=== PATIENT | female | born 1955 | race African-American/Black ===

== ENCOUNTER 2016-11-09 20:41 | Emergency (ER) | payer MEDICAID ==
[~2016-11-09] VITALS: Ht 162.6 cm; Wt 117.9 kg
[2016-11-09 21:55] LABS: Urine Bilirubin Negative (Negative); Urine Blood Negative /uL (Negative); Urine Color Yellow (Yellow); Urine Glucose Normal (Normal); Urine Hyaline Cast FEW /lpf (0 - 2); Urine Ketone Negative (Negative); Urine Mucus FEW (None Seen); Urine Nitrite Negative (Negative); Urine RBC <1 /hpf (0 - 4); Urine Squamous Epithelial Cell FEW /hpf (<5); Urine Urobilinogen Normal (Negative); Urine pH 5.5 (5.0-8.0)
[2016-11-09 21:55] LABS: Basophils # (auto) 0.1 uL; Basophils % (auto) 0.8 % (0.0-2.0); CONDITION Y; Eosinophils # (auto) 0.1 uL; Eosinophils % (auto) 1.3 % (0.0-7.0); Hematocrit 39.7 % (36.0-46.0); Hemoglobin 13.3 g/dL (12.2-16.2); Lymphocytes # (auto) 2.9 uL; Lymphocytes % (auto) 27.1 % (10.0-50.0); Mean Corpuscular Hgb Conc. 33.5 g/dL (32.0-36.0); Mean Corpuscular Volume 83.6 fL (80.0-100.0); Mean Platelet Volume 9.9 fL (6.9-10.8); Monocytes # (auto) 0.4 uL; Neutrophils # (auto) 7.2 uL; Neutrophils % (auto) 66.8 % (37.0-80.0); Platelet Count (auto) 254 10^3/uL (140-450); Red Cell Distribution Width 17.3 % (11.8-14.3); White Blood Cell 10.8 10^3/uL (4.4-10.8)
[2016-11-09 22:09] LABS: INR 0.95 (0.9-1.15); Partial Thromboplastin Time 28.8 sec (22.64-33.71); Prothrombin Time 10.3 sec (9.37-12.3)
[2016-11-09 22:19] LABS: Albumin 3.4 g/dL (3.4-5.0); Alkaline Phosphatase 123 U/L (45-117); Anion Gap 6 (5-15); Aspartate Aminotransferase 10 U/L (15-37); BUN/Creatinine Ratio 15.4; Bilirubin, Total 0.1 mg/dL (0.2-1.0); Blood Urea Nitrogen 16 mg/dL (7-18); Calcium 8.8 mg/dL (8.5-10.1); Carbon Dioxide 25 mmol/L (21-32); Chloride 104 mmol/L (98-107); GFR African American 70 mL/min; GFR Non-African American 57 mL/min; Glucose 236 mg/dL (74-106); Potassium 3.9 mmol/L (3.5-5.1); Sodium 135 mmol/L (136-145); Total Protein 8.1 g/dL (6.4-8.2)
[2016-11-09 22:22] LABS: B-Type Natriuretic Peptide 10.47 pg/mL (0-100)
[2016-11-09 22:41] LABS: Temperature: 22.7 C (20.0-25.0)
[2016-11-10 03:50] VITALS: BP 155/79
== END 2016-11-10 04:35 | disposition home or self-care (01) ==
LOC: ER 20:52
DX: M54.9 Dorsalgia, unspecified (principal); I10 Essential (primary) hypertension; K21.9 Gastro-esophageal reflux disease without esophagitis; E78.5 Hyperlipidemia, unspecified; G89.4 Chronic pain syndrome; Z90.49 Acquired absence of other specified parts of digestive tract
CPT/HCPCS: 36415; 71010; 80053; 81001; 82962; 83735; 83880; 84484; 85025; 85610; 85730; 93005

== ENCOUNTER 2019-07-13 17:13 | Inpatient (IN) | payer MEDICAID ==
[~2019-07-13] VITALS: Ht 162.6 cm; Wt 99.9 kg
[2019-07-13 17:52] LABS: Basophils # (auto) 0.1 10 ^3/uL (0-0.2); Basophils % (auto) 1.2 % (0.0-2.0); Eosinophils # (auto) 0.1 10 ^3/uL (0-0.8); Eosinophils % (auto) 0.8 % (0.0-7.0); Hematocrit 43.7 % (36.0-46.0); Hemoglobin 14.4 g/dL (12.2-16.2); Lymphocytes % (auto) 34.6 % (10.0-50.0); Mean Corpuscular Hemoglobin 27.6 pg (28.0-32.0); Mean Corpuscular Volume 83.5 fL (80.0-100.0); Monocytes # (auto) 0.5 10 ^3/uL (0-1.3); Monocytes % (auto) 5.5 % (0.0-12.0); Neutrophils % (auto) 57.9 % (37.0-80.0); Nucleated Red Blood Cells % 0.2 %; Platelet Count (auto) 239 10^3/uL (140-450); Red Blood Cells 5.23 10^6/uL (4.0-5.20); Red Cell Distribution Width 16.9 % (11.8-14.3); White Blood Cell 8.7 10^3/uL (4.4-10.8)
[2019-07-13] MEDS ORDERED: cloNIDine HCL 0.1 MG TAB PO ONE (18:00)
[2019-07-13 18:09] LABS: Albumin 3.3 g/dL (3.4-5.0); Anion Gap 4 (5-15); Blood Urea Nitrogen 8 mg/dL (7-18); Calcium 8.9 mg/dL (8.5-10.1); Carbon Dioxide 26 mmol/L (21-32); Chloride 109 mmol/L (98-107); Glucose 92 mg/dL (74-106); Potassium 3.8 mmol/L (3.5-5.1); Sodium 139 mmol/L (136-145)
[2019-07-13 18:11] LABS: Alanine Aminotransferase 23 U/L (13-56); Aspartate Aminotransferase 11 U/L (15-37); BUN/Creatinine Ratio 8.5; GFR African American 77 mL/min; GFR Non-African American 64 mL/min
[2019-07-13 18:16] LABS: Alkaline Phosphatase 134 U/L (45-117); Bilirubin, Total 0.2 mg/dL (0.2-1.0); Total Protein 8.2 g/dL (6.4-8.2)
[2019-07-13 18:55] LABS: INR 0.96 (0.9-1.15)
[2019-07-13] MEDS ORDERED: LISINOPRIL 20 MG TAB PO ONE (19:30)
[2019-07-13] MEDS ORDERED: MORPHINE SULF INJ 2 MG/ML SYRINGE 1ML IV PRN (19:30)
[2019-07-13] MEDS ORDERED: NITROGLYCERIN 0.4 MG SL TAB SL PRN ×2 (19:30→20:15)
[2019-07-13] MEDS ORDERED: NIFEdipine ER 30 MG TAB PO ONE (19:30)
[2019-07-13] MEDS ORDERED: METOPROLOL SUCCINATE XL 50 MG TAB PO ONE (19:30)
[2019-07-13] MEDS ORDERED: ALUM & MAG HYDROX-SIMETH LIQ(MAALOX) 30 ML PO ONE (20:15)
[2019-07-13] MEDS ORDERED: MORPHINE SULFATE 4 MG/ML SYR/VIAL IV PRN (20:15)
[2019-07-13] MEDS ORDERED: IPRATROPIUM BROM 0.5 MG/2.5ML INH SOL NEB ONE (20:15)
[2019-07-13] MEDS ORDERED: ALBUTEROL SULF 2.5 MG/0.5ML(0.5%) NEB SOLN NEB PRN (20:15)
[2019-07-13] MEDS ORDERED: FAMOTIDINE 20 MG TAB PO ONE (20:15)
[2019-07-13] MEDS ORDERED: IPRATROPIUM BROM 0.5 MG/2.5ML INH SOL NEB PRN (20:15)
[2019-07-13] MEDS ORDERED: ALBUTEROL SULF 2.5 MG/0.5ML(0.5%) NEB SOLN NEB ONE (20:15)
[2019-07-13] MEDS ORDERED: DEXTROSE (50%) 50ML SYRG IV PRN (20:15)
[2019-07-13] MEDS: ACETAMINOPHEN 500 MG TAB PO PRN (20:23)
[2019-07-13 20:55] VITALS: BP 171/89
[2019-07-13 22:00] VITALS: BP 171/78
[2019-07-13] MEDS: FAMOTIDINE 20 MG TAB PO SCH (22:00)
[2019-07-13] MEDS ORDERED: METOPROLOL TARTRATE 50 MG TAB PO SCH (22:00)
[2019-07-13] MEDS ORDERED: INSULIN LANTUS (GLARGINE) 1 /0.01ml (100units/ml) SC SCH (22:00)
[2019-07-13 22:02] VITALS: BP 171/78
[2019-07-13] MEDS: GABAPENTIN 300 MG CAP PO SCH (23:08)
[2019-07-13] MEDS: ATORVASTATIN 20 MG TAB PO SCH (23:09)
[2019-07-13] MEDS: LORazepam 0.5 MG TAB PO PRN (23:12)
[2019-07-13 23:15] VITALS: BP 144/79
[2019-07-14] VITALS (7 sets, daily range): BP systolic 118–153; BP diastolic 57–81
[2019-07-14] MEDS: InsuLIN REG 1unit/0.01ml Soln (100units/ml) SC SCH ×5 (00:04→21:33)
[2019-07-14] MEDS: ACCU-CHEK COMFORT CURVE STRIP VI SCH ×5 (00:05→21:33)
[2019-07-14] MEDS: ACETAMINOPHEN 500 MG TAB PO PRN ×2 (03:53→12:32)
[2019-07-14] MEDS: GABAPENTIN 300 MG CAP PO SCH ×3 (06:25→21:14)
[2019-07-14] MEDS: LORazepam 0.5 MG TAB PO PRN ×2 (06:33→21:31)
[2019-07-14] MEDS: INSULIN LISPRO (HUMAN) 100 UNITS/ML ML SC SCH ×3 (09:49→20:20)
[2019-07-14] MEDS: FAMOTIDINE 20 MG TAB PO SCH ×2 (09:50→21:14)
[2019-07-14] MEDS: ENOXAPARIN SOD 40 MG/0.4 ML SYRINGE SC SCH (09:50)
[2019-07-14] MEDS: ASPirin 81 mg TAB PO SCH (09:50)
[2019-07-14] MEDS: DOCUSATE SOD 100 MG CAP PO SCH (09:50)
[2019-07-14] MEDS: LISINOPRIL 20 MG TAB PO SCH (09:51)
[2019-07-14] MEDS: CLOPIDOGREL BISULFATE 75 MG TAB PO SCH (09:51)
[2019-07-14] MEDS: METOPROLOL SUCCINATE XL 50 MG TAB PO SCH (09:52)
[2019-07-14] MEDS ORDERED: ADENOSINE 85 MG in GIVE UN-DILUTED 0 ML IV STA (11:34)
[2019-07-14] MEDS: ONDANSETRON HCL 4 MG/2 ML VIAL IV PRN (14:21)
[2019-07-14] MEDS ORDERED: SERT-275 PO (17:11)
[2019-07-14] MEDS ORDERED: METH500T22 PO (17:11)
[2019-07-14] MEDS ORDERED: HYDR-531 PO (17:11)
[2019-07-14] MEDS ORDERED: BUPR150T6 PO (17:11)
[2019-07-14] MEDS ORDERED: KETO2SHA EX (17:22)
[2019-07-14] MEDS ORDERED: ALBUAER3 IN (17:22)
[2019-07-14] MEDS ORDERED: TRI05TP TOP (17:22)
[2019-07-14] MEDS ORDERED: KETO2CRE4 TOP (17:22)
[2019-07-14] MEDS ORDERED: INSU1INJ19 SC (17:22)
[2019-07-14] MEDS ORDERED: LIRA18IN2 SUBCUT (17:22)
[2019-07-14] MEDS ORDERED: INSUINJ7 IJ (17:23)
[2019-07-14] MEDS ORDERED: OMEP-263 PO (17:24)
[2019-07-14] MEDS ORDERED: CLON0.2T PO (17:26)
[2019-07-14] MEDS ORDERED: FLUT44AE IN (17:26)
[2019-07-14] MEDS ORDERED: GABA-339 PO (17:27)
[2019-07-14] MEDS ORDERED: ZOLP10TA6 PO (17:27)
[2019-07-14] MEDS ORDERED: ARTIOIN11 OP (17:28)
[2019-07-14] MEDS: ATORVASTATIN 20 MG TAB PO SCH (21:13)
[2019-07-14] MEDS: INSULIN LANTUS (GLARGINE) 1 /0.01ml (100units/ml) SC SCH (21:32)
[2019-07-14] MEDS: HYDROcodone-ACET 5/325MG TAB PO PRN (21:42)
[2019-07-15] VITALS (7 sets, daily range): BP systolic 144–170; BP diastolic 70–84
[2019-07-15] MEDS: hydrALAZINE HCL 20 MG/ML VL IV PRN ×2 (01:01→12:27)
[2019-07-15] MEDS: ACETAMINOPHEN 500 MG TAB PO PRN ×4 (01:01→22:26)
[2019-07-15] MEDS: HYDROcodone-ACET 5/325MG TAB PO PRN (05:30)
[2019-07-15] MEDS: GABAPENTIN 300 MG CAP PO SCH (05:30)
[2019-07-15] MEDS: InsuLIN REG 1unit/0.01ml Soln (100units/ml) SC SCH ×4 (06:20→22:25)
[2019-07-15] MEDS: ACCU-CHEK COMFORT CURVE STRIP VI SCH ×4 (06:21→22:24)
[2019-07-15 06:23] LABS: Basophils # (auto) 0.1 10 ^3/uL (0-0.2); Eosinophils # (auto) 0.1 10 ^3/uL (0-0.8); Eosinophils % (auto) 0.8 % (0.0-7.0); Hematocrit 41.8 % (36.0-46.0); Hemoglobin 13.9 g/dL (12.2-16.2); Lymphocytes # (auto) 3.5 10 ^3/uL (0.4-5.4); Lymphocytes % (auto) 36.1 % (10.0-50.0); Mean Corpuscular Hemoglobin 28.1 pg (28.0-32.0); Mean Corpuscular Hgb Conc. 33.4 g/dL (32.0-36.0); Mean Corpuscular Volume 84.2 fL (80.0-100.0); Monocytes # (auto) 0.6 10 ^3/uL (0-1.3); Monocytes % (auto) 5.9 % (0.0-12.0); Neutrophils # (auto) 5.5 10 ^3/uL (1.6-8.6); Neutrophils % (auto) 56.2 % (37.0-80.0); Platelet Count (auto) 225 10^3/uL (140-450); Red Blood Cells 4.96 10^6/uL (4.0-5.20); Red Cell Distribution Width 16.5 % (11.8-14.3); White Blood Cell 9.8 10^3/uL (4.4-10.8)
[2019-07-15 06:38] LABS: Calcium 8.6 mg/dL (8.5-10.1)
[2019-07-15 06:40] LABS: BUN/Creatinine Ratio 12.9
[2019-07-15 06:43] LABS: Bilirubin, Total 0.2 mg/dL (0.2-1.0); Total Protein 7.6 g/dL (6.4-8.2)
[2019-07-15] MEDS ORDERED: HYDROmorphone HCL 2 MG/ML VL IV PRN (09:00)
[2019-07-15] MEDS: DOCUSATE SOD 100 MG CAP PO SCH (09:28)
[2019-07-15] MEDS: METOPROLOL SUCCINATE XL 50 MG TAB PO SCH (09:28)
[2019-07-15] MEDS: ASPirin 81 mg TAB PO SCH (09:29)
[2019-07-15] MEDS: LISINOPRIL 20 MG TAB PO SCH (09:29)
[2019-07-15] MEDS: ENOXAPARIN SOD 40 MG/0.4 ML SYRINGE SC SCH (09:29)
[2019-07-15] MEDS: CLOPIDOGREL BISULFATE 75 MG TAB PO SCH (09:29)
[2019-07-15] MEDS: FAMOTIDINE 20 MG TAB PO SCH ×2 (09:29→22:23)
[2019-07-15] MEDS: ONDANSETRON HCL 4 MG/2 ML VIAL IV PRN ×2 (09:30→15:03)
[2019-07-15] MEDS: INSULIN LISPRO (HUMAN) 100 UNITS/ML ML SC SCH ×3 (10:07→19:39)
[2019-07-15] MEDS: CEPHALEXIN 250 MG CAP PO SCH ×2 (12:27→18:03)
[2019-07-15] MEDS: GABAPENTIN 400 MG CAP PO SCH ×2 (15:03→22:23)
[2019-07-15] MEDS: ATORVASTATIN 20 MG TAB PO SCH (22:23)
[2019-07-15] MEDS: INSULIN LANTUS (GLARGINE) 1 /0.01ml (100units/ml) SC SCH (22:25)
[2019-07-15] MEDS: ZOLPIDEM TARTRATE 5 MG TAB PO PRN (22:26)
[2019-07-16] VITALS (7 sets, daily range): BP systolic 136–178; BP diastolic 67–84
[2019-07-16] MEDS: CEPHALEXIN 250 MG CAP PO SCH ×5 (01:00→23:58)
[2019-07-16 06:10] LABS: Potassium 4.2 mmol/L (3.5-5.1)
[2019-07-16] MEDS: GABAPENTIN 400 MG CAP PO SCH ×3 (06:13→21:51)
[2019-07-16] MEDS: InsuLIN REG 1unit/0.01ml Soln (100units/ml) SC SCH ×4 (06:14→21:56)
[2019-07-16] MEDS: ACCU-CHEK COMFORT CURVE STRIP VI SCH ×4 (06:14→21:51)
[2019-07-16 06:18] LABS: BUN/Creatinine Ratio 16.5; Calcium 9.2 mg/dL (8.5-10.1)
[2019-07-16] MEDS: ONDANSETRON HCL 4 MG/2 ML VIAL IV PRN ×2 (08:38→14:16)
[2019-07-16] MEDS: ENOXAPARIN SOD 40 MG/0.4 ML SYRINGE SC SCH (09:09)
[2019-07-16] MEDS: FAMOTIDINE 20 MG TAB PO SCH ×2 (09:09→21:51)
[2019-07-16] MEDS: DOCUSATE SOD 100 MG CAP PO SCH (09:09)
[2019-07-16] MEDS: ASPirin 81 mg TAB PO SCH (09:10)
[2019-07-16] MEDS: CLOPIDOGREL BISULFATE 75 MG TAB PO SCH (09:10)
[2019-07-16] MEDS: amLODIPine BESYLATE 5 MG TAB PO SCH (09:11)
[2019-07-16] MEDS: INSULIN LISPRO (HUMAN) 100 UNITS/ML ML SC SCH ×3 (09:21→19:30)
[2019-07-16] MEDS: METOPROLOL TARTRATE 25 MG TAB PO SCH ×2 (11:47→21:51)
[2019-07-16] MEDS ORDERED: LISINOPRIL 10 MG TAB PO ONE (13:30)
[2019-07-16] MEDS: MECLIZINE HCL 25 MG TAB PO PRN (14:06)
[2019-07-16] MEDS: ACETAMINOPHEN 500 MG TAB PO PRN (19:28)
[2019-07-16] MEDS ORDERED: ALUM & MAG HYDROX-SIMETH LIQ(MAALOX) 30 ML ONE (20:34)
[2019-07-16] MEDS: ATORVASTATIN 20 MG TAB PO SCH (21:50)
[2019-07-16] MEDS: INSULIN LANTUS (GLARGINE) 1 /0.01ml (100units/ml) SC SCH (21:56)
[2019-07-16] MEDS: ZOLPIDEM TARTRATE 5 MG TAB PO PRN (21:56)
[2019-07-16] MEDS: LORazepam 0.5 MG TAB PO PRN (22:57)
[2019-07-17 05:00] VITALS: BP 145/65
[2019-07-17] MEDS: CEPHALEXIN 250 MG CAP PO SCH ×4 (06:25→23:20)
[2019-07-17] MEDS: GABAPENTIN 400 MG CAP PO SCH ×3 (06:25→22:17)
[2019-07-17] MEDS: ACCU-CHEK COMFORT CURVE STRIP VI SCH ×4 (06:26→22:23)
[2019-07-17] MEDS: InsuLIN REG 1unit/0.01ml Soln (100units/ml) SC SCH ×4 (06:29→22:22)
[2019-07-17] MEDS: ACETAMINOPHEN 500 MG TAB PO PRN ×2 (06:30→22:19)
[2019-07-17 08:00] VITALS: BP 162/79
[2019-07-17 08:55] VITALS: BP 161/85
[2019-07-17] MEDS: DOCUSATE SOD 100 MG CAP PO SCH (09:04)
[2019-07-17] MEDS: FAMOTIDINE 20 MG TAB PO SCH ×2 (09:05→22:17)
[2019-07-17] MEDS: CLOPIDOGREL BISULFATE 75 MG TAB PO SCH (09:05)
[2019-07-17] MEDS: ENOXAPARIN SOD 40 MG/0.4 ML SYRINGE SC SCH (09:05)
[2019-07-17] MEDS: ASPirin 81 mg TAB PO SCH (09:05)
[2019-07-17] MEDS: amLODIPine BESYLATE 5 MG TAB PO SCH (09:06)
[2019-07-17] MEDS: METOPROLOL TARTRATE 25 MG TAB PO SCH ×2 (09:06→22:19)
[2019-07-17] MEDS: LISINOPRIL 10 MG TAB PO SCH (09:07)
[2019-07-17] MEDS: INSULIN LISPRO (HUMAN) 100 UNITS/ML ML SC SCH ×3 (10:00→19:53)
[2019-07-17] MEDS: MECLIZINE HCL 25 MG TAB PO PRN ×2 (11:51→19:55)
[2019-07-17 12:28] VITALS: BP 158/71
[2019-07-17] MEDS: ONDANSETRON HCL 4 MG/2 ML VIAL IV PRN (14:48)
[2019-07-17 16:35] VITALS: BP 154/77
[2019-07-17] MEDS: ATORVASTATIN 20 MG TAB PO SCH (22:17)
[2019-07-17] MEDS: INSULIN LANTUS (GLARGINE) 1 /0.01ml (100units/ml) SC SCH (22:22)
[2019-07-17] MEDS: ZOLPIDEM TARTRATE 5 MG TAB PO PRN (22:23)
[2019-07-17 22:56] VITALS: BP 144/74
[2019-07-18 05:47] VITALS: BP 133/92
[2019-07-18] MEDS: InsuLIN REG 1unit/0.01ml Soln (100units/ml) SC SCH ×2 (06:42→11:30)
[2019-07-18] MEDS: ACCU-CHEK COMFORT CURVE STRIP VI SCH ×2 (06:44→11:30)
[2019-07-18] MEDS: CEPHALEXIN 250 MG CAP PO SCH ×2 (06:44→12:00)
[2019-07-18] MEDS: GABAPENTIN 400 MG CAP PO SCH ×2 (06:44→14:00)
[2019-07-18 08:00] VITALS: BP 141/74
[2019-07-18 08:47] VITALS: BP 141/74
[2019-07-18] MEDS: MECLIZINE HCL 25 MG TAB PO PRN (09:08)
[2019-07-18] MEDS: ACETAMINOPHEN 500 MG TAB PO PRN (09:09)
[2019-07-18] MEDS: DOCUSATE SOD 100 MG CAP PO SCH (09:42)
[2019-07-18] MEDS: ASPirin 81 mg TAB PO SCH (09:42)
[2019-07-18] MEDS: FAMOTIDINE 20 MG TAB PO SCH (09:43)
[2019-07-18] MEDS: CLOPIDOGREL BISULFATE 75 MG TAB PO SCH (09:43)
[2019-07-18] MEDS: METOPROLOL TARTRATE 25 MG TAB PO SCH (09:43)
[2019-07-18] MEDS: amLODIPine BESYLATE 5 MG TAB PO SCH (09:43)
[2019-07-18] MEDS: ENOXAPARIN SOD 40 MG/0.4 ML SYRINGE SC SCH (09:44)
[2019-07-18] MEDS: LISINOPRIL 10 MG TAB PO SCH (09:44)
[2019-07-18] MEDS: INSULIN LISPRO (HUMAN) 100 UNITS/ML ML SC SCH (09:45)
[2019-07-18 13:00] VITALS: BP 155/77
[2019-07-18 13:18] VITALS: BP 141/74
== END 2019-07-18 14:45 | disposition home or self-care (01) | DRG 199 ==
LOC: EDBD 17:13 → ER 17:13 → TELE 17:14 → TELE-CENTR 21:20
PROVIDERS: ADMIT Hospitalist; ATTEND Internal Medicine
DX: I16.9 Hypertensive crisis, unspecified (principal); E11.42 Type 2 diabetes mellitus with diabetic polyneuropathy; E44.0 Moderate protein-calorie malnutrition; E11.65 Type 2 diabetes mellitus with hyperglycemia; I10 Essential (primary) hypertension; K21.9 Gastro-esophageal reflux disease without esophagitis; G89.29 Other chronic pain; Z68.37 Body mass index [BMI] 37.0-37.9, adult; F17.210 Nicotine dependence, cigarettes, uncomplicated; J44.9 Chronic obstructive pulmonary disease, unspecified; Z79.4 Long term (current) use of insulin; Z79.899 Other long term (current) drug therapy; Z80.0 Family history of malignant neoplasm of digestive organs; Z82.49 Family history of ischemic heart disease and other diseases of the circulatory system; Z83.3 Family history of diabetes mellitus; Z91.19 Patient's noncompliance with other medical treatment and regimen; M54.9 Dorsalgia, unspecified; E66.01 Morbid (severe) obesity due to excess calories
CPT/HCPCS: 36415; 70450; 70486; 71045; 78452; 80048; 80053; 82550; 82962; 83735; 84443; 84484; 85025; 85610; 85730; 93005; 93017; 93306; 93886; 94640; G0378; J0153; J1815; J2405

== ENCOUNTER 2020-10-07 08:34 | Emergency (ER) | payer MEDICAID ==
[~2020-10-07] VITALS: Ht 162.6 cm; Wt 98.0 kg
[~2020-10-07 08:34] MED LIST: ALBUAER3 IN; ARTIOIN11 OP; BUPR150T18 PO; CLON0.2T PO; FLUT44AE IN; GABA-339 PO; HYDR-531 PO; INSU1INJ19 SC; INSUINJ7 IJ; KETO2CRE4 TOP; KETO2SHA5 EX; LIRA18IN2 SUBCUT; METH500T22 PO; OMEP-263 PO; SERT25TA14 PO; TRI05TP TOP; ZOLP10TA6 PO
[2020-10-07 10:24] VITALS: BP 196/97
[2020-10-07] MEDS ORDERED: methylPREDNISolone SOD SUCC 125 MG/2 ML VL IM ONE (12:00)
== END 2020-10-07 12:21 | disposition home or self-care (01) ==
LOC: ER 08:34
DX: J01.10 Acute frontal sinusitis, unspecified (principal); G43.909 Migraine, unspecified, not intractable, without status migrainosus; E11.9 Type 2 diabetes mellitus without complications; I10 Essential (primary) hypertension; J44.9 Chronic obstructive pulmonary disease, unspecified; K21.9 Gastro-esophageal reflux disease without esophagitis; E78.5 Hyperlipidemia, unspecified; F17.210 Nicotine dependence, cigarettes, uncomplicated; Z90.89 Acquired absence of other organs; Z90.49 Acquired absence of other specified parts of digestive tract
CPT/HCPCS: 70450; 96372; 99284; J2930

== ENCOUNTER 2020-10-08 18:10 | Emergency (ER) | payer MEDICAID ==
[~2020-10-08] VITALS: Ht 162.6 cm; Wt 98.0 kg
[2020-10-08 18:10] VITALS: BP 149/69
[2020-10-08] MEDS ORDERED: KETOROLAC TROMETH 30 MG/ML 1ML VIAL IV ONE (19:30)
[2020-10-08] MEDS ORDERED: ACETAMINOPHEN 325 MG TAB PO ONE (19:30)
[2020-10-08] MEDS ORDERED: METOCLOPRAMIDE HCL 5MG/ml INJ 2ml VIAL IV ONE (19:30)
[2020-10-08] MEDS ORDERED: SODIUM CHLORIDE 0.9% 1,000 ML IV ONE (19:30)
[2020-10-08 22:14] LABS: Basophils # (auto) 0.1 10 ^3/uL (0-0.2); Basophils % (auto) 0.4 % (0.0-2.0); Eosinophils # (auto) 0 10 ^3/uL (0-0.8); Eosinophils % (auto) 0.3 % (0.0-7.0); Hematocrit 42.6 % (36.0-46.0); Hemoglobin 14.2 g/dL (12.2-16.2); Lymphocytes # (auto) 4.2 10 ^3/uL (0.4-5.4); Lymphocytes % (auto) 29.9 % (10.0-50.0); Mean Corpuscular Hgb Conc. 33.3 g/dL (32.0-36.0); Mean Corpuscular Volume 84.2 fL (80.0-100.0); Monocytes # (auto) 0.9 10 ^3/uL (0-1.3); Monocytes % (auto) 6.4 % (0.0-12.0); Neutrophils # (auto) 8.9 10 ^3/uL (1.6-8.6); Nucleated Red Blood Cells % 0.1 %; Red Blood Cells 5.06 10^6/uL (4.0-5.20); Red Cell Distribution Width 16.2 % (11.8-14.3); White Blood Cell 14.1 10^3/uL (4.4-10.8)
[2020-10-08 22:33] LABS: BUN/Creatinine Ratio 17.1; Calcium 9.4 mg/dL (8.5-10.1); Magnesium 2.2 mg/dL (1.6-2.6); Potassium 3.7 mmol/L (3.5-5.1)
[2020-10-08] MEDS ORDERED: HYDROcodone-ACET 5/325MG TAB PO ONE (23:15)
[2020-10-09 03:15] LABS: Urine Bacteria NONE SEEN /hpf (None Seen); Urine Blood Negative /uL (Negative); Urine Specific Gravity 1.022 (1.001-1.035); Urine WBC 1 /hpf (0 - 5)
== END 2020-10-09 02:31 | disposition home or self-care (01) ==
LOC: ER 18:12
DX: E11.65 Type 2 diabetes mellitus with hyperglycemia (principal); E11.40 Type 2 diabetes mellitus with diabetic neuropathy, unspecified; J44.9 Chronic obstructive pulmonary disease, unspecified; E11.9 Type 2 diabetes mellitus without complications; E78.5 Hyperlipidemia, unspecified; K21.9 Gastro-esophageal reflux disease without esophagitis; I10 Essential (primary) hypertension; F17.210 Nicotine dependence, cigarettes, uncomplicated; Z90.49 Acquired absence of other specified parts of digestive tract
CPT/HCPCS: 36415; 71046; 80048; 81001; 82010; 82962; 83735; 85025; 93005; 96361; 96374; 96375; 99285; J1885; J2765; J7030

== ENCOUNTER 2021-01-15 06:08 | Emergency (ER) | payer MEDICAID ==
[~2021-01-15] VITALS: Ht 162.6 cm; Wt 93.9 kg
[2021-01-15] MEDS ORDERED: LORazepam 0.5 MG TAB PO ONE (07:30)
[2021-01-15 08:19] LABS: Basophils # (auto) 0.1 10 ^3/uL (0-0.2); Basophils % (auto) 0.9 % (0.0-2.0); Eosinophils # (auto) 0 10 ^3/uL (0-0.8); Eosinophils % (auto) 0.3 % (0.0-7.0); Hematocrit 44.2 % (36.0-46.0); Hemoglobin 14.3 g/dL (12.2-16.2); Lymphocytes # (auto) 2.2 10 ^3/uL (0.4-5.4); Mean Corpuscular Hemoglobin 28.1 pg (28.0-32.0); Mean Corpuscular Hgb Conc. 32.4 g/dL (32.0-36.0); Mean Corpuscular Volume 86.8 fL (80.0-100.0); Monocytes # (auto) 0.9 10 ^3/uL (0-1.3); Monocytes % (auto) 5.7 % (0.0-12.0); Neutrophils # (auto) 11.6 10 ^3/uL (1.6-8.6); Neutrophils % (auto) 78.1 % (37.0-80.0); Nucleated Red Blood Cells % 0.1 %; Red Blood Cells 5.09 10^6/uL (4.0-5.20); Red Cell Distribution Width 15.9 % (11.8-14.3); White Blood Cell 14.8 10^3/uL (4.4-10.8)
[2021-01-15] MEDS ORDERED: SODIUM CHLORIDE 0.9% 1,000 ML IV ONE (08:30)
[2021-01-15 08:35] LABS: Albumin 3.5 g/dL (3.4-5.0); Calcium 9.4 mg/dL (8.5-10.1); Potassium 3.9 mmol/L (3.5-5.1)
[2021-01-15 08:38] LABS: BUN/Creatinine Ratio 10.7; Bilirubin, Total 0.3 mg/dL (0.2-1.0); Total Protein 7.6 g/dL (6.4-8.2)
[2021-01-15 11:03] LABS: Urine Bacteria FEW /hpf (None Seen); Urine Blood Negative /uL (Negative); Urine Hyaline Cast FEW /lpf (0 - 2); Urine Mucus FEW (None Seen); Urine Specific Gravity 1.022 (1.001-1.035); Urine WBC 24 /hpf (0 - 5)
[2021-01-15 11:45] VITALS: BP 149/59
== END 2021-01-15 11:58 | disposition home or self-care (01) ==
LOC: ER 06:08
DX: E11.65 Type 2 diabetes mellitus with hyperglycemia (principal); M62.838 Other muscle spasm; J44.9 Chronic obstructive pulmonary disease, unspecified; R51.9 Headache, unspecified; K21.9 Gastro-esophageal reflux disease without esophagitis; E78.5 Hyperlipidemia, unspecified; I10 Essential (primary) hypertension; F17.210 Nicotine dependence, cigarettes, uncomplicated; Z90.49 Acquired absence of other specified parts of digestive tract; Z79.4 Long term (current) use of insulin; Z79.899 Other long term (current) drug therapy
CPT/HCPCS: 36415; 70450; 80053; 81001; 84484; 85025; 96360; 99284; J7030

== ENCOUNTER 2022-09-17 04:31 | Inpatient (IN) | payer OTHER, MEDICAID ==
[~2022-09-17] VITALS: Ht 170.2 cm; Wt 86.3 kg
[2022-09-17] VITALS (47 sets, daily range): BP systolic 81–155; BP diastolic 44–79; PULSE 61–76; RESP 8–22; TEMP 97.3–99.1; O2SAT 95–100
[~2022-09-17 04:31] MED LIST changes: +METH-1181 PO; -METH500T22 PO; -OMEP-263 PO; +OMEP-448 PO; -SERT25TA14 PO; +SERT25TA28 PO
[2022-09-17 04:51] LABS: Basophils # (auto) 0.1 10 ^3/uL (0-0.2); Eosinophils # (auto) 0.1 10 ^3/uL (0-0.8); Hematocrit 38.2 % (36.0-46.0); Hemoglobin 12.6 g/dL (12.2-16.2); Lymphocytes # (auto) 3.2 10 ^3/uL (0.4-5.4); Lymphocytes % (auto) 30.7 % (10.0-50.0); Mean Corpuscular Hemoglobin 28.4 pg (28.0-32.0); Mean Corpuscular Volume 85.9 fL (80.0-100.0); Monocytes # (auto) 0.5 10 ^3/uL (0-1.3); Neutrophils # (auto) 6.6 10 ^3/uL (1.6-8.6); Neutrophils % (auto) 62.3 % (37.0-80.0); Nucleated Red Blood Cells % 0.1 %; Red Blood Cells 4.44 10^6/uL (4.0-5.20); Red Cell Distribution Width 15.3 % (11.8-14.3); White Blood Cell 10.6 10^3/uL (4.4-10.8)
[2022-09-17] MEDS ORDERED: VERAPAMIL 2.5MG/ML INJ 2ML VIAL IV ONE (05:08)
[2022-09-17] MEDS ORDERED: HEPARIN SODIUM (PORCINE) 5000 UNITS/ML 1ML VIAL ONE ×2 (05:08→06:07)
[2022-09-17] MEDS ORDERED: ANGIOMAX 250 MG VIAL IV ONE (05:08)
[2022-09-17] MEDS ORDERED: fentaNYL CITRATE 100 MCG/2 ML VL ONE (05:08)
[2022-09-17] MEDS ORDERED: SODIUM CHL 0.9% 50 ML ONE (05:09)
[2022-09-17] MEDS ORDERED: EPINEPHrine HCL 1 MG/10 ML SYRG ONE (05:09)
[2022-09-17] MEDS ORDERED: ATROPINE SULF 1 MG/10ml SYR ONE (05:09)
[2022-09-17] MEDS ORDERED: IODIXANOL 320MG/ML 100ML BTL IV ONE (05:09)
[2022-09-17] MEDS ORDERED: LIDOCAINE 2%HCL (LOCAL ANESTH.) INJ 20ML MDV ONE (05:09)
[2022-09-17] MEDS ORDERED: MIDAZOLAM HCL 2MG/2ML 2ml VIAL (1mg/ml) ONE (05:09)
[2022-09-17 05:10] LABS: BUN/Creatinine Ratio 13.1 (10.0-20.0); Calcium 8.7 mg/dL (8.5-10.1); Magnesium 2.2 mg/dL (1.6-2.6); Potassium 4.1 mmol/L (3.5-5.1)
[2022-09-17 05:12] LABS: Bilirubin, Total 0.1 mg/dL (0.2-1.0)
[2022-09-17 06:04] LABS: Partial Thromboplastin Time 37.8 SEC (24.5-34.5)
[2022-09-17] MEDS ORDERED: MORPHINE SULFATE INJ 2 MG/ml SYRG ONE (06:07)
[2022-09-17] MEDS ORDERED: FAMOTIDINE (10MG/ML) 2ML VL IV ONE ×2 (06:08→06:15)
[2022-09-17] MEDS ORDERED: NITROGLYCERIN 0.4MG/DOSE SPRAY 4.9GM ONE (06:09)
[2022-09-17] MEDS ORDERED: NITROGLYCERIN 0.4 MG SL TAB SL PRN (06:15)
[2022-09-17] MEDS ORDERED: HEPARIN SODIUM (PORCINE) 5000 UNITS/ML 1ML VIAL IV ONE (06:15)
[2022-09-17] MEDS ORDERED: MORPHINE SULFATE INJ 2 MG/ml SYRG IV PRN (06:15)
[2022-09-17] MEDS ORDERED: NITROGLYCERIN 50MG/250ML 250 ML IV ONE ×2 (06:15→09:26)
[2022-09-17] MEDS ORDERED: MORPHINE SULFATE INJ 2 MG/ml SYRG IV ONE (06:15)
[2022-09-17] MEDS ORDERED: NITROGLYCERIN 0.4 MG SL TAB SL ONE (06:15)
[2022-09-17] MEDS ORDERED: DEXTROSE (50%) 50ML SYRG IV PRN (07:45)
[2022-09-17] MEDS ORDERED: ACCU-CHEK COMFORT CURVE STRIP VI ONE (08:00)
[2022-09-17] MEDS: InsuLIN REG 1unit/0.01ml Soln (100units/ml) SC SCH ×3 (08:07→17:14)
[2022-09-17] MEDS ORDERED: HEPARIN DRIP/D5W 100UNITS/ML 250 ML IV SCH (09:30)
[2022-09-17] MEDS ORDERED: HEPARIN DRIP/D5W 100UNITS/ML 250 ML IV ONE (09:58)
[2022-09-17 10:25] LABS: Basophils # (auto) 0.1 10 ^3/uL (0-0.2); Basophils % (auto) 0.9 % (0.0-2.0); Eosinophils # (auto) 0.1 10 ^3/uL (0-0.8); Eosinophils % (auto) 0.6 % (0.0-7.0); Hematocrit 38.9 % (36.0-46.0); Hemoglobin 12.8 g/dL (12.2-16.2); Lymphocytes # (auto) 3.1 10 ^3/uL (0.4-5.4); Lymphocytes % (auto) 27.6 % (10.0-50.0); Mean Corpuscular Hemoglobin 28.2 pg (28.0-32.0); Mean Corpuscular Hgb Conc. 32.8 g/dL (32.0-36.0); Monocytes # (auto) 0.5 10 ^3/uL (0-1.3); Monocytes % (auto) 4.3 % (0.0-12.0); Neutrophils # (auto) 7.4 10 ^3/uL (1.6-8.6); Neutrophils % (auto) 66.6 % (37.0-80.0); Nucleated Red Blood Cells % 0.1 %; Red Blood Cells 4.53 10^6/uL (4.0-5.20); Red Cell Distribution Width 15.4 % (11.8-14.3); White Blood Cell 11.1 10^3/uL (4.4-10.8)
[2022-09-17 10:51] LABS: INR 0.98 (0.9-1.15); Partial Thromboplastin Time 34.4 SEC (24.5-34.5)
[2022-09-17 11:10] LABS: Cholesterol 159 mg/dL (< 200); HDL Cholesterol 47 mg/dL (40-59); LDL Cholesterol 98 mg/dL (< 100); Triglycerides 85 mg/dL (< 150)
[2022-09-17] MEDS ORDERED: InsuLIN REG 1unit/0.01ml Soln (100units/ml) SC SCH ×2 (11:30→22:00)
[2022-09-17] MEDS: ACCU-CHEK COMFORT CURVE STRIP VI SCH ×3 (12:00→21:12)
[2022-09-17] MEDS ORDERED: OPTISON 3ml Vial for INJ IV ONE (14:52)
[2022-09-17] MEDS ORDERED: NITROGLYCERIN 50MG/250ML 250 ML IV SCH (16:45)
[2022-09-17 19:16] LABS: INR 1.04 (0.9-1.15); Partial Thromboplastin Time 40.2 SEC (24.5-34.5)
[2022-09-17] MEDS ORDERED: ATORVASTATIN 20 MG TAB PO SCH (22:00)
== END 2022-09-17 23:15 | disposition short-term general hospital (02) | DRG 280 ==
LOC: EDBD 04:31 → ER 04:31 → ICU WEST 05:25 → TELE 06:09 → ICU WEST 16:30 → UNDODISIN 21:19
PROVIDERS: ADMIT Internal Medicine; ATTEND Internal Medicine
PROC: B211YZZ Fluoroscopy of Multiple Coronary Arteries using Other Contrast (ICD-10-PCS; principal; 2022-09-17)
PROC: 4A023N7 Measurement of Cardiac Sampling and Pressure, Left Heart, Percutaneous Approach (ICD-10-PCS; 2022-09-17)
PROC: B215YZZ Fluoroscopy of Left Heart using Other Contrast (ICD-10-PCS; 2022-09-17)
DX: I21.3 ST elevation (STEMI) myocardial infarction of unspecified site (principal); I50.41 Acute combined systolic (congestive) and diastolic (congestive) heart failure; R57.0 Cardiogenic shock; D68.9 Coagulation defect, unspecified; Z86.73 Personal history of transient ischemic attack (TIA), and cerebral infarction without residual deficits; E11.9 Type 2 diabetes mellitus without complications; I11.0 Hypertensive heart disease with heart failure; E78.5 Hyperlipidemia, unspecified; I11.9 Hypertensive heart disease without heart failure; J44.9 Chronic obstructive pulmonary disease, unspecified; Z79.01 Long term (current) use of anticoagulants; Z82.49 Family history of ischemic heart disease and other diseases of the circulatory system; Z83.3 Family history of diabetes mellitus; Z95.1 Presence of aortocoronary bypass graft; Z72.0 Tobacco use
CPT/HCPCS: 36415; 71045; 80053; 80061; 82962; 83036; 83735; 83880; 84443; 84484; 85025; 85610; 85730; 86850; 86900; 86901; 87081; 93005; 93306; 93458; 99152; 99291; G0378; J1815; J2250; J3490; Q9956; Q9967

== ENCOUNTER 2022-09-26 03:45 | Emergency (ER) | payer OTHER, MEDICAID ==
[~2022-09-26] VITALS: Ht 165.1 cm; Wt 90.0 kg
[2022-09-26 05:01] VITALS: PULSE 80; RESP 27; O2SAT 96
[2022-09-26 05:19] LABS: Albumin 2.8 g/dL (3.4-5.0); Calcium 8.7 mg/dL (8.5-10.1); Potassium 4.5 mmol/L (3.5-5.1)
[2022-09-26 05:23] LABS: Bilirubin, Total 0.5 mg/dL (0.2-1.0)
[2022-09-26 05:37] LABS: Basophils # (auto) 0.1 10 ^3/uL (0-0.2); Basophils % (auto) 0.5 % (0.0-2.0); Eosinophils # (auto) 0.1 10 ^3/uL (0-0.8); Eosinophils % (auto) 0.4 % (0.0-7.0); Hematocrit 26.4 % (36.0-46.0); Hemoglobin 8.7 g/dL (12.2-16.2); Lymphocytes # (auto) 2.5 10 ^3/uL (0.4-5.4); Mean Corpuscular Hemoglobin 28.4 pg (28.0-32.0); Mean Corpuscular Hgb Conc. 32.9 g/dL (32.0-36.0); Mean Corpuscular Volume 86.6 fL (80.0-100.0); Monocytes # (auto) 1.2 10 ^3/uL (0-1.3); Monocytes % (auto) 8.9 % (0.0-12.0); Neutrophils # (auto) 9.3 10 ^3/uL (1.6-8.6); Neutrophils % (auto) 71.2 % (37.0-80.0); Nucleated Red Blood Cells % 0.8 %; Red Blood Cells 3.05 10^6/uL (4.0-5.20); Red Cell Distribution Width 15.4 % (11.8-14.3); White Blood Cell 13.1 10^3/uL (4.4-10.8)
[2022-09-26 05:45] LABS: INR 1.33 (0.9-1.15); Partial Thromboplastin Time 34.8 SEC (24.5-34.5); Prothrombin Time 13.7 sec (9.3-11.8)
[2022-09-26] MEDS ORDERED: ONDANSETRON HCL 4 MG/2 ML VIAL IV ONE ×2 (07:15→13:00)
[2022-09-26] MEDS ORDERED: HYDROmorphone HCL 2 MG/ML VL/or syr IV ONE ×2 (07:15→13:00)
[2022-09-26 07:30] VITALS: PULSE 81; RESP 21; O2SAT 97
[2022-09-26] MEDS ORDERED: FUROSEMIDE 40 MG/4 ML VIAL IV ONE (09:45)
[2022-09-26] MEDS ORDERED: CALCIUM CARB 500 MG CHEW TAB PO ONE (10:45)
[2022-09-26 15:13] VITALS: BP 115/68; PULSE 79; RESP 20; TEMP 97.4; O2SAT 97
== END 2022-09-26 06:00 | disposition short-term general hospital (02) ==
LOC: EDBD 03:45 → ER 03:45
DX: T88.9XXA Complication of surgical and medical care, unspecified, initial encounter (principal); I50.9 Heart failure, unspecified; I11.0 Hypertensive heart disease with heart failure; I25.10 Atherosclerotic heart disease of native coronary artery without angina pectoris; J44.9 Chronic obstructive pulmonary disease, unspecified; E11.9 Type 2 diabetes mellitus without complications; K21.9 Gastro-esophageal reflux disease without esophagitis; E78.5 Hyperlipidemia, unspecified; F17.210 Nicotine dependence, cigarettes, uncomplicated; Z90.49 Acquired absence of other specified parts of digestive tract
CPT/HCPCS: 36415; 71045; 80053; 83880; 84484; 85025; 85610; 85730; 93005; 96374; 96375; 96376; 99285; J1170; J1940; J2405

== ENCOUNTER 2022-12-09 18:46 | Emergency (ER) | payer OTHER, MEDICAID ==
[~2022-12-09] VITALS: Ht 162.6 cm; Wt 79.2 kg
[2022-12-09 18:50] VITALS: BP 122/64; PULSE 78; RESP 18; O2SAT 98
[2022-12-09] MEDS ORDERED: cefTRIAXone 1GM/50ML D5W 50 ML IV ONE (19:30)
[2022-12-09] MEDS ORDERED: HYDROmorphone HCL 2 MG/ML VL/or syr IV ONE (19:30)
[2022-12-09 20:00] LABS: Basophils # (auto) 0 10 ^3/uL (0-0.2); Basophils % (auto) 0.3 % (0.0-2.0); Eosinophils # (auto) 0 10 ^3/uL (0-0.8); Eosinophils % (auto) 0.4 % (0.0-7.0); Hematocrit 38.9 % (36.0-46.0); Hemoglobin 12.6 g/dL (12.2-16.2); Lymphocytes # (auto) 2.5 10 ^3/uL (0.4-5.4); Mean Corpuscular Hemoglobin 25.5 pg (28.0-32.0); Mean Corpuscular Hgb Conc. 32.3 g/dL (32.0-36.0); Mean Corpuscular Volume 78.8 fL (80.0-100.0); Monocytes # (auto) 0.6 10 ^3/uL (0-1.3); Monocytes % (auto) 5.2 % (0.0-12.0); Neutrophils # (auto) 8.8 10 ^3/uL (1.6-8.6); Neutrophils % (auto) 73.1 % (37.0-80.0); Red Blood Cells 4.93 10^6/uL (4.0-5.20); Red Cell Distribution Width 18.3 % (11.8-14.3)
[2022-12-09 20:23] LABS: Alanine Aminotransferase 20 U/L (7-40); Albumin 4.2 g/dL (3.2-4.8); Alkaline Phosphatase 142 U/L (46-116); Anion Gap 10 (5-15); Aspartate Aminotransferase 8 U/L (13-40); BUN/Creatinine Ratio 8.9 (10.0-20.0); Bilirubin, Total 0.3 mg/dL (0.2-1.0); Blood Urea Nitrogen 8 mg/dL (9-23); Calcium 9.5 mg/dL (8.5-10.1); Carbon Dioxide 23 mmol/L (20-30); Chloride 98 mmol/L (98-107); Glucose 371 mg/dL (74-106); Potassium 4.5 mmol/L (3.5-5.1); Sodium 131 mmol/L (136-145); Total Protein 7.4 g/dL (5.7-8.2)
[2022-12-09 21:46] LABS: Urine Bacteria FEW /hpf (None Seen); Urine Blood Negative /uL (Negative); Urine Clarity HAZY (Clear); Urine Color Yellow (Yellow); Urine Hyaline Cast MANY /lpf (0 - 2); Urine Mucus FEW (None Seen); Urine Protein, UAD 1+ (Negative); Urine Specific Gravity 1.018 (1.001-1.035); Urine Urobilinogen Normal (Negative); Urine WBC 4 /hpf (0 - 5)
[2022-12-09] MEDS ORDERED: CEFA1TAB PO (22:42)
[2022-12-09] MEDS ORDERED: cefTRIAXone W LIDOCAINE 750MG IM IM ONE (23:15)
[2022-12-09] MEDS ORDERED: cefTRIAXone SOD 1,000 MG VL IM ONE (23:15)
[2022-12-09] MEDS ORDERED: cefTRIAXone SOD 500 MG VL IM ONE (23:15)
[2022-12-10] MEDS ORDERED: CEPH250C PO (20:07)
== END 2022-12-09 23:28 | disposition home or self-care (01) ==
LOC: ER 18:46
DX: Z51.89 Encounter for other specified aftercare (principal); H66.91 Otitis media, unspecified, right ear; I10 Essential (primary) hypertension; J44.9 Chronic obstructive pulmonary disease, unspecified; E11.9 Type 2 diabetes mellitus without complications; K21.9 Gastro-esophageal reflux disease without esophagitis; E78.5 Hyperlipidemia, unspecified; F17.210 Nicotine dependence, cigarettes, uncomplicated; Z90.49 Acquired absence of other specified parts of digestive tract; Z98.890 Other specified postprocedural states; Z79.1 Long term (current) use of non-steroidal anti-inflammatories (NSAID); Z79.4 Long term (current) use of insulin; Z79.899 Other long term (current) drug therapy
CPT/HCPCS: 36415; 70450; 71046; 80053; 81001; 82010; 83605; 85025; 87040; 96372; 99285; J0696